=== PATIENT | female | born 1995 | race Caucasian/White ===

== ENCOUNTER 2018-12-10 19:43 | Emergency (ER) | payer BC ==
[2018-12-10 20:44] LABS: Absolute Lymphocytes (CBC) 4.1 K/uL (0.7-4.9); Absolute Monocytes 0.8 K/uL (0.1-1.3); Absolute Neutrophil 5.5 K/uL (1.8-8.0); Basophils % 0.7 % (0-1.3); Eosinophils % 0.7 % (0-4.4); Hematocrit 40.1 % (36.0-45.0); Lymphocytes % 38.8 % (15.3-44.8); Monocytes % 7.9 % (3.3-12.3)
[2018-12-10 20:54] LABS: Albumin 3.5 g/dL (3.4-5.0); Bilirubin Direct 0.1 mg/dL (0-0.2); Bilirubin Total 0.4 mg/dL (0.2-1.0); Potassium 3.5 mmol/L (3.5-5.1); Protein, Total 7.4 g/dL (6.4-8.2)
[2018-12-10 21:07] LABS: Urine Blood NEGATIVE (NEG); Urine Glucose NEGATIVE (NEG); Urine Protein NEGATIVE (NEG); Urine Specific Gravity 1.015 (1.005-1.030)
--- NOTE | 2018-12-10 22:35 | ER ---
Nurse's Notes [facility] Name: Daylin Landaverde Age: 23 yrs Sex: Female : 1995 Arrival Date: 12/10/2018 Time: 19:46 Bed 26 Private MD: Peter Virgen Diagnosis: Abdominal tenderness;Left sided colitis-epiploic appendagitis;Diverticulitis of large intestine without perforation or abscess without bleeding Presentation: 12/10 19:52 Presenting complaint: Patient states: My stomach started hurting on Thursday night. I ed1 tried to brush it off but it wont go away. I went to urgent care and they told me to come to the ER. Transition of care: patient was not received from another setting of care. Onset of symptoms was December 06, 2018. Risk Assessment: Do you want to hurt yourself or someone else? Patient reports no desire to harm self or others. Initial Sepsis Screen: Does the patient meet any 2 criteria? No. Patient's initial sepsis screen is negative. Does the patient have a suspected source of infection? No. Patient's initial sepsis screen is negative. Care prior to arrival: None. 19:52 Method Of Arrival: Ambulatory ed1 19:52 Acuity: KIM 3 ed1 Triage Assessment: 19:55 General: Appears in no apparent distress. Behavior is calm, cooperative. Pain: ed1 Complains of pain in left lower quadrant Pain currently is 5 out of 10 on a pain scale. GI: Last BM was December 10, 2018. Reports diarrhea, normal bowel habits, Patient currently denies nausea, vomiting. 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 - Social history:: Smoking status: Patient/guardian denies using tobacco. - Ebola Screening: : Patient negative for fever greater than or equal to 101.5 degrees Fahrenheit, and additional compatible Ebola Virus Disease symptoms Patient denies exposure to infectious person Patient denies travel to an Ebola-affected area in the 21 days before illness onset No symptoms or risks identified at this time. Screenin:05 Abuse screen: Denies threats or abuse. Denies injuries from another. Nutritional ca1 screening: No deficits noted. Tuberculosis screening: No symptoms or risk factors identified. Fall Risk None identified. Assessment: 20:05 General: Appears in no apparent distress. comfortable, Behavior is calm, cooperative, ca1 appropriate for age. Pain: Complains of pain in abdomen and left lower quadrant Pain does not radiate. Pain currently is 4 out of 10 on a pain scale. at worst was 8 out of 10 on a pain scale. Pain began a week ago Aggravated by repositioning. Neuro: Level of Consciousness is awake, alert, obeys commands, Oriented to person, place, time, situation. Cardiovascular: Heart tones S1 S2 present Capillary refill < 3 seconds Patient's skin is warm and dry. Respiratory: Airway is patent Respiratory effort is even, unlabored, Respiratory pattern is regular, symmetrical. GI: Abdomen is round non-distended, Bowel sounds present X 4 quads. Abd is soft and non tender X 4 quads. : No deficits noted. No signs and/or symptoms were reported regarding the genitourinary system. EENT: No deficits noted. No signs and/or symptoms were reported regarding the EENT system. Derm: Skin is intact, is healthy with good turgor, Skin is pink, warm \T\ dry. Musculoskeletal: Circulation, motion, and sensation intact. Capillary refill < 3 seconds. 21:16 Reassessment: Patient appears in no apparent distress at this time. Patient and/or ca1 family updated on plan of care and expected duration. Pain level reassessed. Patient is alert, oriented x 3, equal unlabored respirations, skin warm/dry/pink. 22:26 Reassessment: Patient appears in no apparent distress at this time. Patient and/or ca1 family updated on plan of care and expected duration. Pain level reassessed. Patient is alert, oriented x 3, equal unlabored respirations, skin warm/dry/pink. 23:21 Reassessment: Patient appears in no apparent distress at this time. Patient and/or ca1 family updated on plan of care and expected duration. Pain level reassessed. Patient is alert, oriented x 3, equal unlabored respirations, skin warm/dry/pink. IV antibiotic ongoing. Discharge after administration of meds. 12/11 00:33 Reassessment: Patient appears in no apparent distress at this time. Patient is alert, ca1 oriented x 3, equal unlabored respirations, skin warm/dry/pink. Discharge instructions given to pt. Verbalized understanding of instructions. Vital Signs: 12/10 19:55 BP 154 / 91; Pulse 80; Resp 18; Temp 98.8(TE); Pulse Ox 99% on R/A; Weight 83.91 kg; ed1 Height 5 ft. 2 in. (157.48 cm); Pain 5/10; 21:16 BP 126 / 76; Pulse 82; Resp 18 S; Pulse Ox 100% on R/A; ca1 22:26 BP 124 / 73; Pulse 87; Resp 18 S; Pulse Ox 98% on R/A; ca1 23:21 BP 116 / 73; Pulse 69; Resp 18; Pulse Ox 98% on R/A; ca1 12/11 00:33 BP 121 / 87; Pulse 76; Resp 18 S; Temp 98.5(O); Pulse Ox 100% on R/A; ca1 12/10 19:55 Body Mass Index 33.84 (83.91 kg, 157.48 cm) ed1 ED Course: 12/10 19:46 Patient arrived in ED. es 19:46 Peter Virgen MD is Private Physician. es 19:54 Triage completed. ed1 19:55 Arm band placed on right wrist. ed1 20:05 Patient has correct armband on for positive identification. Placed in gown. Bed in low ca1 position. Call light in reach. Side rails up X 1. Pulse ox on. NIBP on. Warm blanket given. 20:08 Stefan Perez PA is PHCP. [facility] 20:08 Parag Chanel MD is Attending Physician. [facility] 20:15 Mag Vinson, SMILEY is Primary Nurse. ca1 20:15 Inserted saline lock: 20 gauge in right antecubital area, using aseptic technique. ca1 Blood collected. 20:16 Radiology exam delayed due to lab results not completed at this time. (BUN/Creatinine) vm2 test not completed at this time. 20:45 Radiology exam delayed due to lab results not completed at this time. (BUN/Creatinine) vm2 test not completed at this time. 21:14 Patient moved to [place] via wheelchair. vm2 21:24 CT completed. Patient tolerated procedure well. Patient moved back from [place]. wa 21:36 CT Abd/Pelvis - W/Contrast In Process Unspecified. EDCA 22:32 Peter Virgen MD is Referral Physician. [facility] 22:32 Nirav John MD is Referral Physician. [facility] 12/11 00:35 No provider procedures requiring assistance completed. IV discontinued, intact, ca1 bleeding controlled, No redness/swelling at site. Pressure dressing applied. Administered Medications: 12/10 22:49 Drug: Flagyl 500 mg Volume: 100 ml; Route: IVPB; Rate: 200 ml/hr; Infused Over: 30 ca1 mins; Site: right antecubital; 23:45 Follow up: Response: No adverse reaction; IV Status: Completed infusion ea 23:45 Drug: Cipro 400 mg Volume: 200 ml; Route: IVPB; Infused Over: 60 mins; Site: right ea antecubital; 12/11 00:34 Follow up: Response: No adverse reaction; IV Status: Completed infusion ca1 Outcome: 12/10 22:34 Dis[address] ordered by . [facility] 12/11 00:35 Discharged to home ambulatory. ca1 Condition: stable Discharge instructions given to patient, Instructed on discharge instructions, follow up and referral plans. medication usage, Demonstrated understanding of instructions, follow-up care, medications, Prescriptions given X 3. 00:35 Patient left the ED. ca1 Signatures: Dispatcher [employer] EDCA Parag Chanel MD MD cha Mickail, Joel, PA PA jmm Salyer, Edna es Riggs, Erika, RN RN ed1 Valentin CoonuiYara dimas [facility] Viviana Hamilton RN RN Mag Vinson RN RN ca1 Corrections: (The following items were deleted from the chart) 12/10 21:17 21:16 BP 126 / 76; Pulse 102bpm; Resp 18bpm; Spontaneous; Pulse Ox 100% RA; ca1 ca1
--- NOTE | 2018-12-10 22:35 | EDPHYS ---
Physician Documentation [facility] Name: Daylin Landaverde Age: 23 yrs Sex: Female : 1995 Arrival Date: 12/10/2018 Time: 19:46 Bed 26 Private MD: Peter Virgen ED Physician Parag Chanel HPI: 12/10 20:09 This 23 yrs old Female presents to ER via Ambulatory with complaints of jmm Abdominal Pain. 20:09 The patient presents with abdominal pain in the left lower quadrant. Onset: The jmm symptoms/episode began/occurred gradually, 4 day(s) ago. The symptoms do not radiate. Associated signs and symptoms: Pertinent negatives: fever. This is a 23 year old female with no chronic medical conditions that presents to the ED with complaints of left lower abdominal pain beginning 4 days ago. Patient denies vomiting, diarrhea, denies fever. . 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 - Social history:: Smoking status: Patient/guardian denies using tobacco. - Ebola Screening: : Patient negative for fever greater than or equal to 101.5 degrees Fahrenheit, and additional compatible Ebola Virus Disease symptoms Patient denies exposure to infectious person Patient denies travel to an Ebola-affected area in the 21 days before illness onset No symptoms or risks identified at this time. ROS: 20:09 Constitutional: Negative for fever, chills, and weight loss, Cardiovascular: Negative jmm for chest pain, palpitations, and edema, Respiratory: Negative for shortness of breath, cough, wheezing, and pleuritic chest pain. 20:09 Abdomen/GI: Positive for abdominal pain. 20:09 All other systems are negative. Exam: 20:09 Constitutional: This is a well developed, well nourished patient who is awake, alert, jmm and in no acute distress. Head/Face: atraumatic. Eyes: EOMI, no conjunctival erythema appreciated ENT: Moist Mucus Membranes Neck: Trachea midline, Supple Chest/axilla: Normal chest wall appearance and motion. Cardiovascular: Regular rate and rhythm. No edema appreciated Respiratory: Normal respirations, no respiratory distress appreciated 20:09 Skin: General appearance color normal MS/ Extremity: Moves all extremities, no obvious deformities appreciated, no edema noted to the lower extremities Neuro: Awake and alert, normal gait Psych: Behavior is normal, Mood is normal, Patient is cooperative and pleasant 20:09 Abdomen/GI: Inspection: abdomen appears normal, Bowel sounds: normal, Palpation: soft, mild abdominal tenderness, in the left lower quadrant. 20:09 Back: CVA tenderness, is absent, is noted bilaterally. Vital Signs: 19:55 BP 154 / 91; Pulse 80; Resp 18; Temp 98.8(TE); Pulse Ox 99% on R/A; Weight 83.91 kg; ed1 Height 5 ft. 2 in. (157.48 cm); Pain 5/10; 21:16 BP 126 / 76; Pulse 82; Resp 18 S; Pulse Ox 100% on R/A; ca1 22:26 BP 124 / 73; Pulse 87; Resp 18 S; Pulse Ox 98% on R/A; ca1 23:21 BP 116 / 73; Pulse 69; Resp 18; Pulse Ox 98% on R/A; ca1 12/11 00:33 BP 121 / 87; Pulse 76; Resp 18 S; Temp 98.5(O); Pulse Ox 100% on R/A; ca1 12/10 19:55 Body Mass Index 33.84 (83.91 kg, 157.48 cm) ed1 MDM: 12/10 20:09 Patient medically screened. [facility] 22:07 Data reviewed: vital signs, nurses notes, lab test result(s). Transition of care: After [facility] a detail discussion of the patient's case, care is transferred to Parag Chanel MD. 12/10 20:12 Order name: Basic Metabolic Panel; Complete Time: 21: [facility] 12/10 20:12 Order name: CBC with Diff; Complete Time: 21: [facility] 12/10 20:12 Order name: Creatinine for Radiology; Complete Time: 21: [facility] 12/10 20:12 Order name: Hepatic Function; Complete Time: 21:02 [facility] 12/10 20:12 Order name: Lipase; Complete Time: 21: [facility] 12/10 20:37 Order name: Urine Dipstick--Ancillary (enter results) cm6 12/10 20:12 Order name: IV Saline Lock; Complete Time: 21:12 [facility] 12/10 20:12 Order name: Labs collected and sent; Complete Time: 21:12 [facility] 12/10 20:12 Order name: Urine Dipstick-Ancillary (obtain specimen); Complete Time: 21:12 [facility] 12/10 20:12 Order name: CT Abd/Pelvis - W/Contrast [facility] 12/10 20:37 Order name: Urine --Ancillary (enter results) [facility] Administered Medications: 22:49 Drug: Flagyl 500 mg Volume: 100 ml; Route: IVPB; Rate: 200 ml/hr; Infused Over: 30 ca1 mins; Site: right antecubital; 23:45 Follow up: Response: No adverse reaction; IV Status: Completed infusion ea 23:45 Drug: Cipro 400 mg Volume: 200 ml; Route: IVPB; Infused Over: 60 mins; Site: right ea antecubital; 12/11 00:34 Follow up: Response: No adverse reaction; IV Status: Completed infusion ca1 Disposition: 12/10/18 22:34 Discharged to Home. Impression: Abdominal tenderness, Left sided colitis - epiploic appendagitis, Diverticulitis of large intestine without perforation or abscess without bleeding. - Condition is Stable. - Discharge Instructions: Abdominal Pain, Adult, Diverticulitis, Diverticulitis, [id number], Abdominal Pain, Adult, [id number]. - Prescriptions for Bentyl 20 mg Oral Tablet - take 1 tablet by ORAL route every 6 hours As needed; 20 tablet. Flagyl 500 mg Oral Tablet - take 1 tablet by ORAL route every 6 hours for 7 days; 28 tablet. Cipro 500 mg Oral Tablet - take 1 tablet by ORAL route every 12 hours for 7 days; 14 tablet. - Medication Reconciliation Form, Thank You Letter, Antibiotic Education, Prescription Opioid Use form. - Follow up: Peter Virgen MD; When: 2 - 3 days; Reason: Recheck today's complaints, Continuance of care, Re-evaluation by your physician. Follow up: Nirav John MD; When: 2 - 3 days; Reason: Recheck today's complaints, Re-evaluation by your physician. - Problem is new. - Symptoms have improved. Addendum: 12/13/2018 06:43 Co-signature as Attending Physician, Parag Chanel MD I agree with the assessment and c ayala plan of care. Signatures: Dispatcher [employer] EDMS Parag Chanel MD MD cha Mickail, Joel, PA PA jmm Riggs, Erika, RN RN ed1 Viviana Hamilton, RN RN ea Mag Vinson, RN RN ca1 Corrections: (The following items were deleted from the chart) 12/11 00:35 12/10 22:34 12/10/2018 22:34 Discharged to Home. Impression: Abdominal tenderness; Left ca1 sided colitis - epiploic appendagitis; Diverticulitis of large intestine without perforation or abscess without bleeding. Condition is Stable. Forms are Medication Reconciliation Form, Thank You Letter, Antibiotic Education, Prescription Opioid Use. Follow up: Peter Virgen; When: 2 - 3 days; Reason: Recheck today's complaints, Continuance of care, Re-evaluation by your physician. Follow up: Nirav John; When: 2 - 3 days; Reason: Recheck today's complaints, Re-evaluation by your physician. Problem is new. Symptoms have improved. [place]
[2018-12-10] MEDS ORDERED: METRONIDAZOLE 500mg IVPB 500 MG/100 ML BAG IV ONE (23:06)
[2018-12-10] MEDS ORDERED: CIPROFLOXACIN 400mg IV 400 MG/200 ML BAG IV ONE (23:06)
[2018-12-11 02:02] VITALS: BP 121/87; TEMP 98.5; O2SAT 100
--- NOTE | 2018-12-13 12:38 | RAD REPORT ---
EXAM DESCRIPTION: CT - Abdomen Pelvis W Contrast - 12/10/2018 10:18 pm CLINICAL HISTORY: The patient is 23 years old and is Female; lower abdominal pain TECHNIQUE: Axial computed tomography images of the abdomen and pelvis with intravenous contrast. S agittal and coronal reformatted images were created and reviewed. This CT exam was performed using one or more of the following dose reduction techniques: automated exposure control, adjustment of t he mA and/or kV according to patient size, and/or use of iterative reconstruction technique. COMPARISON: None. FINDINGS: LUNG BASES: Unremarkable. No mass. No consolidation. ABDOMEN: LIVER: Unremarkable. No mass. GALLBLADDER AND BILE DUCTS: Unremarkable. No calcified stones. No ductal dilation. PANCREAS: Unremarkable. No mass. No ductal dilation. SPLEEN: Unremarkable. No splenomegaly. ADRENALS: Unremarkable. No mass. KIDNEYS AND URETERS: Unremarkable. No solid mass. No hydronephrosis. STOMACH AND BOWEL: Mild focal wall thickening involving the distal descending colon with mild fat stranding abutting the its anterior wall (series 501, image 55). No obstruction. PELVIS: APPENDIX: The appendix is seen and is within normal limits. BLADDER: Bladder is decompressed. REPRODUCTIVE: Unremarkable as visualized. ABDOMEN and PELVIS: INTRAPERITONEAL SPACE: Unremarkable. No free air. No significant fluid collection. BONES/JOINTS: No acute fracture. No dislocation. SOFT TISSUES: Small fat-containing umbilical hernia. VASCULATURE: Unremarkable. No abdominal aortic aneurysm. LYMPH NODES: Unremarkable. No enlarged lymph nodes. IMPRESSION: Mild focal wall thickening involving the distal descending colon with mild fat stranding abutting the its anterior wall. Finding could represent epiploic appendagitis or focal diverticuliti s, the former being favored considering the lack of colonic diverticulosis. Electronically signed by: Wiliam Keith DO 12/10/2018 9:49 PM CDT Due to temporary technical issues with the PACS/Fluency reporting system, reports are being signed by the in house radiologist as a courtesy to ensure prompt reporting. The interpreting radiologist is f jayshreely responsible for the content of the report.
== END 2018-12-11 00:35 | disposition home or self-care (01) ==
LOC: ER 19:43
DX: K51.50 Left sided colitis without complications (principal); K63.89 Other specified diseases of intestine; K57.32 Diverticulitis of large intestine without perforation or abscess without bleeding; Z88.0 Allergy status to penicillin
CPT/HCPCS: 36415; 74177; 80048; 80076; 81003; 81025; 83690; 85025; 96365; 96367; 99284; J0744; Q9967